=== PATIENT | male | born 1990 ===

== ENCOUNTER 2018-02-17 13:48 | Emergency (ER) | payer OTHER ==
[2018-02-17 15:20] VITALS: BP 111/66
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
== END 2018-02-17 15:19 | disposition home or self-care (01) ==
LOC: ED 13:48
DX: T23.471A Corrosion of unspecified degree of right wrist, initial encounter (principal); T32.0 Corrosions involving less than 10% of body surface; Y92.9 Unspecified place or not applicable
CPT/HCPCS: 99281